=== PATIENT | male | born 1965 | race Caucasian/White ===

== ENCOUNTER 2016-08-10 22:52 | Emergency (ER) | payer OTHER, MEDICAID ==
[~2016-08-10] VITALS: Ht 180.3 cm; Wt 170.1 kg
[2016-08-10 22:53] VITALS: BP 174/105
[2016-08-11] MEDS ORDERED: HYDROmorphone 1 MG/ML, 1ML IM STA (00:19)
[2016-08-11] MEDS ORDERED: HYDROmorphone 1 MG/ML, 1ML ONE (00:38)
== END 2016-08-11 03:09 | disposition home or self-care (01) ==
LOC: ED 08-11 02:45
DX: S86.911A Strain of unspecified muscle(s) and tendon(s) at lower leg level, right leg, initial encounter (principal); S80.11XA Contusion of right lower leg, initial encounter; I10 Essential (primary) hypertension; W01.0XXA Fall on same level from slipping, tripping and stumbling without subsequent striking against object, initial encounter; Y93.89 Activity, other specified; Y92.89 Other specified places as the place of occurrence of the external cause; Y99.8 Other external cause status
CPT/HCPCS: 73590; 73610; 93971; 96372; 99284; J1170

== ENCOUNTER 2020-03-16 19:57 | Emergency (ER) | payer MEDICARE, MEDICAID, OTHER ==
[~2020-03-16] VITALS: Ht 180.3 cm; Wt 159.8 kg
--- NOTE | 2020-03-16 20:52 | NUR ---
PT PLACED IN [facility]
--- NOTE | 2020-03-16 21:27 | NUR ---
PT TO CT AT THIS TIME
[2020-03-16 21:40] VITALS: BP 136/110
--- NOTE | 2020-03-16 21:41 | NUR ---
PT BACK FROM CT. RESTING IN [facility]. JENNY. AGUSTOS
== END 2020-03-16 22:55 | disposition home or self-care (01) ==
LOC: ED 20:29
DX: S16.1XXA Strain of muscle, fascia and tendon at neck level, initial encounter (principal); M25.571 Pain in right ankle and joints of right foot; I10 Essential (primary) hypertension; V49.09XA Driver injured in collision with other motor vehicles in nontraffic accident, initial encounter; Y93.89 Activity, other specified; Y92.410 Unspecified street and highway as the place of occurrence of the external cause; Y99.8 Other external cause status
CPT/HCPCS: 72125; 99284

== ENCOUNTER → 2020-04-29 | Outpatient (CLI) | payer OTHER, MEDICARE, MEDICAID | END | disposition home or self-care (01) | LOC: CFH 14:27 | PROVIDERS: ATTEND Nurse Practitioner | DX: M19.071 Primary osteoarthritis, right ankle and foot (principal); M25.774 Osteophyte, right foot; M25.871 Other specified joint disorders, right ankle and foot; M93.271 Osteochondritis dissecans, right ankle and joints of right foot; Q66.51 Congenital pes planus, right foot ==